=== PATIENT | male | born 1990 | race Two or more races ===

== ENCOUNTER 2021-12-01 19:57 | Emergency (ER) | payer BC ==
[~2021-12-01] VITALS: Ht 180.3 cm; Wt 70.3 kg
[2021-12-01 20:39] VITALS: BP 138/89
[2021-12-01] MEDS ORDERED: CLOB15OI3 TP (21:04)
--- NOTE | 2021-12-01 22:20 | NUR ---
Patient discharged to home in stable condition. Written and verbal after care instructions given. Patient verbalizes understanding of instruction.
== END 2021-12-01 22:20 | disposition home or self-care (01) ==
LOC: ER 20:01
DX: L40.0 Psoriasis vulgaris (principal); Z79.52 Long term (current) use of systemic steroids